=== PATIENT | female | born 1995 | race Caucasian/White ===

== ENCOUNTER 2023-10-28 22:09 | Emergency (ER) | payer OTHER ==
[~2023-10-28] VITALS: Ht 157.5 cm; Wt 72.6 kg
[2023-10-28 22:24] VITALS: BP 138/74; PULSE 59; RESP 16; TEMP 98; O2SAT 100
[2023-10-28] MEDS ORDERED: AMOX875T3 PO (22:48)
[2023-10-28] MEDS: KETOROLAC 30 MG/ML VIAL IM ONE (23:02)
[2023-10-28] MEDS: ACETAMINOPHEN EXTRA STRENGTH 500 MG TAB PO ONE (23:03)
== END 2023-10-28 23:04 | disposition home or self-care (01) ==
LOC: MED 22:09
DX: H66.92 Otitis media, unspecified, left ear (principal); J02.9 Acute pharyngitis, unspecified; R05.9 Cough, unspecified; Z79.899 Other long term (current) drug therapy
CPT/HCPCS: 96372; 99283; J1885